=== PATIENT | female | born 1955 | race Two or more races ===

== ENCOUNTER 2020-07-23 09:11 | Outpatient (CLI) | payer OTHER | END 2020-07-23 09:21 | disposition home or self-care (01) | LOC: RAD 09:11 | PROVIDERS: ATTEND Orthopaedic Surgery | DX: M25.572 Pain in left ankle and joints of left foot (principal); M79.605 Pain in left leg ==

== ENCOUNTER 2020-08-04 10:43 | Outpatient (CLI) | payer OTHER | END 2020-08-04 10:52 | disposition home or self-care (01) | LOC: MRI 10:43 | PROVIDERS: ATTEND Orthopaedic Surgery | DX: M25.562 Pain in left knee (principal); M23.92 Unspecified internal derangement of left knee | CPT/HCPCS: 73721 ==

== ENCOUNTER 2020-08-04 13:47 | Outpatient (CLI) | payer OTHER | END 2020-08-04 13:55 | disposition home or self-care (01) | LOC: NUCLEAR 13:47 | PROVIDERS: ATTEND Orthopaedic Surgery | DX: M81.0 Age-related osteoporosis without current pathological fracture (principal) ==

== ENCOUNTER → 2020-08-06 10:36 | Outpatient (CLI) | payer OTHER | END | disposition home or self-care (01) | LOC: LAB 10:36 | PROVIDERS: ATTEND Orthopaedic Surgery | DX: M79.641 Pain in right hand (principal); M65.331 Trigger finger, right middle finger; E55.9 Vitamin D deficiency, unspecified; E88.89 Other specified metabolic disorders; E21.2 Other hyperparathyroidism; M81.8 Other osteoporosis without current pathological fracture; E56.1 Deficiency of vitamin K ==

== ENCOUNTER → 2020-11-24 | Outpatient (CLI) | payer OTHER ==
[~2020-11-24] MED LIST: DICLOFENAC POTA50 MG PO; LYRICA50 MG PO
== END | disposition home or self-care (01) ==
LOC: MAMO-SONO 09:58
PROVIDERS: ATTEND Internal Medicine Cardiovascular Disease
DX: Z12.31 Encounter for screening mammogram for malignant neoplasm of breast (principal); N64.59 Other signs and symptoms in breast

== ENCOUNTER 2022-01-19 07:07 | Outpatient (CLI) | payer OTHER | END 2022-01-19 07:12 | disposition home or self-care (01) | LOC: SONOGRAMA 07:07 | PROVIDERS: ATTEND Internal Medicine Gastroenterology | DX: R10.84 Generalized abdominal pain (principal); J45.30 Mild persistent asthma, uncomplicated ==

== ENCOUNTER 2022-07-12 13:51 | Outpatient (CLI) | payer OTHER | END 2022-07-12 14:00 | disposition home or self-care (01) | LOC: MAMO-SONO 13:51 | PROVIDERS: ATTEND Internal Medicine Cardiovascular Disease | DX: N63.11 Unspecified lump in the right breast, upper outer quadrant (principal); N63.12 Unspecified lump in the right breast, upper inner quadrant ==

== ENCOUNTER 2022-11-16 10:50 | Outpatient (CLI) | payer OTHER | END 2022-11-16 10:57 | disposition home or self-care (01) | LOC: SONOGRAMA 10:50 | PROVIDERS: ATTEND Internal Medicine Cardiovascular Disease | DX: M12.9 Arthropathy, unspecified (principal) ==

== ENCOUNTER 2023-04-08 10:39 | Outpatient (CLI) | payer OTHER | END 2023-04-08 10:43 | disposition home or self-care (01) | LOC: MRI 10:39 | PROVIDERS: ATTEND Orthopaedic Surgery | DX: M25.512 Pain in left shoulder (principal) | CPT/HCPCS: 73221 ==

== ENCOUNTER 2023-04-08 12:47 | Outpatient (CLI) | payer OTHER | END 2023-04-08 12:52 | disposition home or self-care (01) | LOC: LAB 12:47 | PROVIDERS: ATTEND Internal Medicine Cardiovascular Disease | DX: J11.1 Influenza due to unidentified influenza virus with other respiratory manifestations (principal); A49.3 Mycoplasma infection, unspecified site; Z20.822 Contact with and (suspected) exposure to COVID-19 ==

== ENCOUNTER 2023-06-22 12:10 | Outpatient (CLI) | payer OTHER | END 2023-06-22 12:13 | disposition home or self-care (01) | LOC: RAD 12:10 | PROVIDERS: ATTEND Orthopaedic Surgery | DX: R07.9 Chest pain, unspecified (principal) ==

== ENCOUNTER 2023-08-30 10:22 | Outpatient (CLI) | payer OTHER | END 2023-08-30 10:30 | disposition home or self-care (01) | LOC: MAMO-SONO 10:22 | PROVIDERS: ATTEND Internal Medicine Cardiovascular Disease | DX: Z12.31 Encounter for screening mammogram for malignant neoplasm of breast (principal); N60.12 Diffuse cystic mastopathy of left breast ==

== ENCOUNTER 2024-01-25 11:08 | Outpatient (CLI) | payer OTHER | END 2024-01-25 11:24 | disposition home or self-care (01) | LOC: RAD 11:08 | PROVIDERS: ATTEND Internal Medicine Cardiovascular Disease | DX: M12.9 Arthropathy, unspecified (principal); M46.47 Discitis, unspecified, lumbosacral region ==

== ENCOUNTER 2024-11-09 12:52 | Outpatient (CLI) | payer OTHER | END 2024-11-09 13:00 | disposition home or self-care (01) | LOC: MAMO-SONO 12:52 | PROVIDERS: ATTEND Obstetrics & Gynecology | DX: N60.11 Diffuse cystic mastopathy of right breast (principal); Z12.31 Encounter for screening mammogram for malignant neoplasm of breast ==

== ENCOUNTER 2024-11-23 12:25 | Outpatient (CLI) | payer OTHER | END 2024-11-23 12:26 | disposition home or self-care (01) | LOC: NUCLEAR 12:25 | PROVIDERS: ATTEND Obstetrics & Gynecology | DX: M81.0 Age-related osteoporosis without current pathological fracture (principal) ==

== ENCOUNTER 2025-07-10 09:46 | Outpatient (CLI) | payer OTHER | END 2025-07-10 09:55 | disposition home or self-care (01) | LOC: MRI 09:46 | PROVIDERS: ATTEND Internal Medicine Cardiovascular Disease | DX: M46.47 Discitis, unspecified, lumbosacral region (principal); M19.90 Unspecified osteoarthritis, unspecified site | CPT/HCPCS: 72148; 72195 ==